=== PATIENT | female | born 1925 | race Caucasian/White ===

== ENCOUNTER → 2016-08-27 | Outpatient (CLI) | payer MEDICARE, BC ==
[2015-09-05 10:56] VITALS: BP 191/64
[~2016-08-27] MED LIST: AMLO2.5T PO; CALC500T54 PO; CHOL100013 PO; HYDR-971 PO; HYDR12.58 PO; INSU100V5 SQ; LOSA25TA4 PO; MULT-18 PO
--- NOTE | 2016-08-27 10:58 | KCIC ---
Indication: Age-related bone loss and postmenopausal. Bone mineral analysis of the lumbar spine and left hip was performed. Correlation is made with prior study from 03/04/2011. The bone mineral density of the lumbar spine from L1 to L4 is 1.024 with a T score of -0.2. This compares with 0.944 and -0.9 on prior. The bone mineral density of the left hip is 0.781 with a T score of -1.3. This compares with 0.790 and -1.2 on prior. IMPRESSION: Normal bone mineral density of the lumbar spine and osteopenia of the left hip. Electronically signed by: Juan Jones MD (08/27/2016 10:54 AM) [id number]
--- NOTE | 2016-08-27 14:27 | KCIC ---
Bilateral digital screening mammograms: Reason for examination: Routine screening. Comparison is made to previous studies dated 07/26/2015 and 09/20/2014. The skin and nipples show no abnormalities. No abnormal lymph nodes are seen. The breast parenchyma is predominantly fatty. (Breast density: Category A.) There are no dominant masses, suspicious calcifications or architectural distortions. Impression: No evidence of malignancy. Recommend routine screening. BI-RADS Category 1: Negative. "Our facility is accredited by the [employer] Mammography Program." This patient's information has been entered into a reminder system for the patient to be notified with the results of her examination and a target date for the next mammogram. Electronically signed by: Yamini Maldonado MD (08/27/2016 2:23 PM) [id number]
== END | disposition home or self-care (01) ==
LOC: KCIC MAMMO 09:46
PROVIDERS: ATTEND Family Medicine
DX: Z12.31 Encounter for screening mammogram for malignant neoplasm of breast (principal); M85.88 Other specified disorders of bone density and structure, other site; R29.890 Loss of height; Z78.0 Asymptomatic menopausal state
CPT/HCPCS: 77080; G0202; 77067

== ENCOUNTER → 2017-02-17 | Outpatient (CLI) | payer MEDICARE ==
[2017-02-17] MEDS: ALBUTEROL SULFATE 2.5 MG/3 ML NEBU. NEB ×2 (10:01)
== END | disposition home or self-care (01) ==
LOC: PF 09:09
DX: J43.9 Emphysema, unspecified (principal); R06.09 Other forms of dyspnea
CPT/HCPCS: 94060; 94640; 94729; J7613

== ENCOUNTER → 2017-02-17 | Outpatient (CLI) | payer MEDICARE | END | disposition home or self-care (01) | LOC: KCIC 10:47 | DX: R91.8 Other nonspecific abnormal finding of lung field (principal); R05 Cough | CPT/HCPCS: 71046 ==